=== PATIENT | female | born 1990 | race Caucasian/White ===

== ENCOUNTER → 2018-06-04 08:31 | Outpatient (CLI) | payer OTHER, SELFPAY ==
[2018-06-04 08:52] LABS: Basophils # 0.1 K/mm3 (0-0.2); Basophils % 0.6 % (0.1-2.0); Eosinophils # 0.3 K/mm3 (0.0-0.4); Eosinophils % 3.6 % (0.1-12.0); Hematocrit 41.5 % (37.0-47.0); Hemoglobin 13.3 g/dL (12.2-16.2); Lymphocytes # 2.9 K/mm3 (0.7-4.5); Lymphocytes % 31.8 K/mm3 (10-50); Mean Corpuscular HGB Conc 32.2 g/dL (31.8-35.4); Mean Corpuscular Hemoglobin 28.1 pg (27.0-31.2); Mean Corpuscular Volume 87.2 fl (81-99); Mean Platelet Volume 7.2 fl (7.4-10.4); Monocytes # 0.4 K/mm3 (0.1-1.0); Monocytes % 4.1 % (1.7-9.3); Neutrophils # 5.5 K/mm3 (1.8-7.8); Platelet Count 372 K/mm3 (142-424); Red Blood Count 4.75 M/mm3 (4.20-5.40); Red Cell Distribution Width 13.5 % (11.5-17.5); White Blood Count 9.1 K/mm3 (4.8-10.8)
[2018-06-04 11:12] LABS: Alanine Aminotransferase 19 U/L (12-78); Albumin Level 3.7 gm/dL (3.4-5.0); Alkaline Phosphatase 88 U/L (46-116); Anion Gap 9.3 mEq/L (5-15); Aspartate Amino Transferase 9 U/L (15-37); Bilirubin,Total 0.2 mg/dL (0.2-1.0); Blood Urea Nitrogen 10 mg/dL (7-18); Calcium 8.8 mg/dL (8.5-10.1); Carbon Dioxide 27 mmol/L (21.0-32.0); Chloride 107 mmol/L (98-107); Chol/HDL Ratio 4.3 (1-3.5); Cholesterol 163 mg/dL (140-200); Creatinine,Serum 0.76 mg/dL (0.55-1.02); Estimated Glomerular Filt Rate 90 ml/min (>60); GFR (African American) 109 ML/MIN (>60); Globulin 3.6 gm/dl (1.3-3.2); Glucose 94 mg/dL (74-106); HDL Cholesterol 38 mg/dL (29-89); LDL Cholesterol 98 mg/dL (0-130); Potassium 4.3 mmoL/L (3.5-5.1); Sodium 139 mmol/L (136-145); Total Protein,Serum 7.3 gm/dL (6.4-8.2); Triglycerides 137 mg/dL (30-200); VLDL Cholesterol 27 mg/dL (0-40)
[2018-06-05 18:17] LABS: Vitamin D 25 Hydroxy 30.7 ng/mL (30.0-100.0)
[2018-06-05 18:18] LABS: Vitamin B12 383 pg/mL (232-1245)
== END ==
PROVIDERS: Visit Provider Nurse Practitioner Family
DX: Z00.00 Encounter for general adult medical examination without abnormal findings (principal); R53.83 Other fatigue
CPT/HCPCS: 36415; 80053; 80061; 82607; 82652; 84443; 85025

== ENCOUNTER → 2019-05-03 09:36 | Outpatient (CLI) | payer OTHER, SELFPAY ==
--- NOTE | 2019-05-03 09:40 | XR_ITS ---
XR foot RT min 3V HISTORY: ITS.REASON: RT FOOT PAIN ORDERING PHYSICIAN: Clif Melgar MD PATIENT AGE: 28 years COMPARISON: FINDINGS: No fracture or dislocation. No lytic or blastic change. There is normal mineralization.. The joint spaces are well-preserved. No significant degenerative/arthritic changes. No erosive changes evident. Incidental note is made of a prominent os navicularis an os trigonum IMPRESSION: No acute finding , prominent os navicularis an os trigonum
--- NOTE | 2019-05-03 16:21 | XR_ITS ---
XR foot RT min 3V HISTORY: ITS.REASON: RT FOOT PAIN,TRAUMA,WB TO EVAL. FOR STRESS FX ORDERING PHYSICIAN: Clif Melgar MD PATIENT AGE: 28 years COMPARISON: None FINDINGS: There is a faint lucency along the medial and proximal aspect of the navicular. This could be related to an os navicularis versus a fracture. Consider CT for more thorough evaluation. No other significant anomalies are evident. IMPRESSION: Possible naviculare versus nondisplaced fracture at the base of the navicular medially. Consider CT for further evaluation
== END ==
PROVIDERS: PCP Internal Medicine Adolescent Medicine; Visit Provider Internal Medicine Adolescent Medicine
DX: M79.671 Pain in right foot (principal); G89.11 Acute pain due to trauma
CPT/HCPCS: 73630

== ENCOUNTER 2019-05-03 16:45 | Outpatient (RCR) | payer OTHER, SELFPAY | END 2019-05-03 17:00 | disposition home or self-care (01) | LOC: PT 16:45 | PROVIDERS: Visit Provider Nurse Practitioner Family | DX: M79.671 Pain in right foot (principal); G89.11 Acute pain due to trauma | CPT/HCPCS: 97760 ==

== ENCOUNTER → 2019-05-05 08:01 | Outpatient (CLI) | payer OTHER, SELFPAY ==
--- NOTE | 2019-05-05 08:07 | CT_ITS ---
CT foot RT wo con INDICATION: Trauma with right foot pain, abnormal radiograph ITS.REASON: RT FOOT PAIN ORDERING PHYSICIAN: Tess Winters APRN PATIENT AGE: 28 years COMPARISON: 05/03/2019 TECHNIQUE: Contrast Used:None Oral Contrast: Axial images were obtained. Sagittal and coronal reformatted images are reviewed as well. All CT scans at the facility use one or more dose reduction, viz: automated exposure control, ma/kV adjustment per patient size (including targeted exams where dose is matched to indication, i.e. head), or iterative reconstruction technique. FINDINGS: No acute fracture or dislocation is evident. Previously noted radiographic MLO the of the navicular bone appears to represent a type II accessory navicular bone and not an acute fracture. No acute fracture or dislocation is evident. There is an os trigonum also as a normal variant. No evidence of stress fracture. IMPRESSION: 1. No acute fracture 2. Type 2 accessory navicular bone
== END ==
PROVIDERS: PCP Internal Medicine Adolescent Medicine; Visit Provider Nurse Practitioner Family
DX: M79.671 Pain in right foot (principal)
CPT/HCPCS: 73700

== ENCOUNTER → 2019-10-20 08:29 | Outpatient (CLI) | payer OTHER, SELFPAY ==
--- NOTE | 2019-10-20 08:31 | US_ITS ---
PROCEDURE: US GALLBLADDER CLINICAL INDICATION: RUQ PAIN Upper quadrant pain nausea COMPARISON: No exams were available for comparison FINDINGS: Pancreas: Unremarkable/Not well seen Liver: Unremarkable. There is appropriate direction of blood flow within a non dilated portal vein. Right kidney: Unremarkable appearing. No hydronephrosis. Gallbladder: No stones are evident. There is no gallbladder wall thickening. Common duct is normal in diameter. IMPRESSION: Negative gallbladder ultrasound. No stones evident. Dictated by: Faisal Calle MD 10/20/2019 18:58 Electronically signed by Faisal Calle MD in [place] 10/20/2019 18:58
== END ==
PROVIDERS: PCP Internal Medicine Adolescent Medicine; Visit Provider Internal Medicine Adolescent Medicine
DX: R10.11 Right upper quadrant pain (principal)
CPT/HCPCS: 76705

== ENCOUNTER → 2019-10-29 09:40 | Outpatient (CLI) | payer OTHER, SELFPAY ==
--- NOTE | 2019-10-29 09:47 | NM_ITS ---
PROCEDURE: NM HEPATOBILIARY W PHARM CLINICAL INDICATION: RUQ PAIN COMPARISON: No exams were available for comparison FINDINGS: Exam is performed with 8 millicuries of technetium Choletec. Initial image shows homogeneous liver activity and gallbladder fossa activity by 15 minutes and activity in the proximal jejunum by 30 minutes. Ejection fraction is 96 percent. IMPRESSION: No evidence of cystic duct obstruction. Normal ejection fraction. Dictated by: Kee Beckwith 10/29/2019 12:58 Electronically signed by Kee Beckwith in [place] 10/29/2019 12:58
--- NOTE | 2019-10-29 10:54 | HMH.ITSHM ---
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 [] no med
== END ==
PROVIDERS: PCP Internal Medicine Adolescent Medicine; Visit Provider Nurse Practitioner Family
DX: R10.11 Right upper quadrant pain (principal)
CPT/HCPCS: 78227; A9537; J2805

== ENCOUNTER → 2020-10-06 10:01 | Outpatient (CLI) | payer OTHER, SELFPAY ==
[2020-10-06 11:41] LABS: Adenovirus,PCR Not Detected (NotDetected); Bordetella Pertussis Not Detected (NotDetected); Chlamydophila Pneumoniae, PCR Not Detected (NotDetected); Coronavirus 19, PCR Not Detected (NotDetected); Coronavirus 229E Not Detected (NotDetected); Coronavirus NL63 Not Detected (NotDetected); Coronavirus OC43 Not Detected (NotDetected); Coronovirus HKU1,PCR Not Detected (NotDetected); Human Metapneumovirus Not Detected (NotDetected); Influenza A, PCR Not Detected (NotDetected); Influenza AH1, 2009 Not Detected (NotDetected); Influenza AH1, PCR Not Detected (NotDetected); Influenza AH3,PCR Not Detected (NotDetected); Influenza B, PCR Not Detected (NotDetected); Mycoplasma Pneumoniae, PCR Not Detected (NotDetected); Parainfluenza 1, PCR Not Detected (NotDetected); Parainfluenza 2, PCR Not Detected (NotDetected); Parainfluenza 3, PCR Not Detected (NotDetected); Parainfluenza 4, PCR Not Detected (NotDetected); Respiratory Syncytial Virus Not Detected (NotDetected); Rhinovirus/Enterovirus Not Detected (NotDetected)
== END ==
PROVIDERS: PCP Internal Medicine Adolescent Medicine; Visit Provider Internal Medicine Adolescent Medicine
DX: Z03.818 Encounter for observation for suspected exposure to other biological agents ruled out (principal); R05 Cough
CPT/HCPCS: 87581; 87633; 87798; U0003

== ENCOUNTER 2020-10-21 12:49 | Emergency (ER) | payer OTHER, SELFPAY ==
[2020-10-21 12:55] VITALS: BP 128/69; PULSE 82; RESP 20; TEMP 36.8; O2SAT 96; BMI 44.9
--- NOTE | 2020-10-21 13:20 | HMH.EDUTC ---
[facility] [place] Clinical Impression: Otitis media Qualifiers: Otitis media type: suppurative Chronicity: acute Laterality: bilateral Recurrence: non-recurrent Spontaneous tympanic membrane rupture: without spontaneous rupture Qualified Code(s): H66.003 - Acute suppurative otitis media without spontaneous rupture of ear drum, bilateral Disposition: Home, Self-Care Condition on Discharge: Good Instructions: Middle Ear Infection Additional Instructions: Drink plenty of fluids. Take tylenol for pain or fever. Return if you begin to have difficulty breathing. Follow up with your regular doctor. GO TO THE ER FOR ANY WORSENING SYMPTOMS Prescriptions: Amoxicillin [Amoxicillin 500mg Tab] 500 mg PO TID 10 Days #30 tab Transmission Status: Received by [id number] predniSONE [Deltasone 10mg tablet] 10 mg PO BID 3 Days #6 tab Transmission Status: Received by [id number] Referrals: Clif Melgar MD [Primary Care Provider] - Time of Disposition: 13:22 Medical Decision Making - Medical Records Medical records reviewed: No: I reviewed the patient's medical records. - Kike Inquiry Pt receiving controlled substance: No Vital Signs: 10/21/20 12:55 10/21/20 13:25 Temperature 98.2 F 98.2 F Temperature Source Oral Pulse Rate 82 Pulse Rate [Left Brachial] 82 Respiratory Rate 20 20 Blood Pressure 128/69 Blood Pressure [Left Arm] 128/69 Blood Pressure Mean [Left Arm] 88 Blood Pressure Source [Left Arm] Automatic Cuff Blood Pressure Position [Left Arm] Sitting 02 Sat by Pulse Oximetry 96 Oxygen Delivery Method Room Air [facility] [place] - General Stated complaint: rt ear pain Time Seen by Provider: 10/21/20 13:20 Mode of Arrival: Ambulatory Source of Information: Patient Limitations: No Limitations Description of Symptoms (Recalled from Triage Doc. by RN): PATIENT C/O RIGHT EAR PAIN AND FULLNESS IN LEFT EAR SINCE THIS MORNING HEENT Symptoms (Recalled from RN notes): Yes Resp Symptoms (Recalled from RN notes): No Skin Symptoms (Recalled from RN notes): No MS Symptoms (Recalled from RN notes): No Functional Status (Recalled from RN notes): WNL - History of Present Illness Provider Complaint: She c/o bilateral ear pain for the past 2 days. She denies any fever, chills, and exposure to covid. - Related Data Previous Rx's Medication Instructions Recorded Amoxicillin [Amoxicillin 500mg Tab] 500 mg PO TID 10 Days #30 tab 10/21/20 predniSONE [Deltasone 10mg tablet] 10 mg PO BID 3 Days #6 tab 10/21/20 Allergies Allergy/AdvReac Type Severity Reaction Status Date / Time No Known Allergies Allergy Unverified 10/21/17 15:04 - Worker's Comp Is this a Worker's Comp case?: No [facility] History - Hepatitis A Screen Drug use history?: No High risk sexual behaviors?: No History of sexually transmitted infection?: No Currently employed?: No Childcare worker?: No Do you have indoor plumbing?: Yes Do you have electricity?: Yes Attestation statement:: This patient has been screened for Hepatitis A risk factors. I have reviewed the patient's past medical history: Yes Medical History: Denies:: Diabetes Mellitus Type 1, Diabetes Mellitus Type 2 Laterality Cases: Bilateral: Tonsillectomy - Social History Alcohol Intake: never Occupational Status: other Housing: house Household Members: significant other, children ROS Obtained: Yes All systems reviewed & no additional complaints - Constitutional Constitutional: Denies chills, Denies fever(s), Reports poor appetite, Reports malaise - Eyes Eyes: Denies eye discharge - ENT Ears, Nose, Mouth, and Throat: Reports as per HPI - Cardiovascular Cardiovascular: Denies chest pain - Respiratory Respiratory: No chest congestion, No cough Physical Exam - General General appearance: alert, in no apparent distress - Head Head exam: atraumatic, normocephalic, normal inspection - Eye Eye exam: Present: normal appear
[2020-10-21 13:25] VITALS: BP 128/69; PULSE 82; RESP 20; TEMP 36.8; O2SAT 96
== END 2020-10-21 13:28 | disposition home or self-care (01) ==
PROVIDERS: Emergency Provider Nurse Practitioner Family; PCP Internal Medicine Adolescent Medicine
DX: H66.003 Acute suppurative otitis media without spontaneous rupture of ear drum, bilateral (principal)
CPT/HCPCS: 99201

== ENCOUNTER 2021-04-01 12:23 | Emergency (ER) | payer OTHER, SELFPAY ==
[2021-04-01 12:32] VITALS: BP 138/86; PULSE 98; RESP 16; TEMP 36.7; O2SAT 98; BMI 44.9
--- NOTE | 2021-04-01 12:36 | XR_ITS ---
PROCEDURE INFORMATION: Exam: XR Left Foot Exam date and time: 04/01/2021 12:36 PM Age: 30 years old Clinical indication: Injury or trauma; Fall; Blunt trauma; Patient HX: PT fell on wet grass yesterday. Left foot pain. Shielded. TECHNIQUE: Imaging protocol: XR Left foot. Views: 1 or 2 views. COMPARISON: CR (FOOT AP, FOOT, FOOT AP) 05/03/2019 4:34 PM FINDINGS: Bones/joints: Normal. Soft tissues: Normal. IMPRESSION: No acute findings.
--- NOTE | 2021-04-01 12:36 | XR_ITS ---
PROCEDURE INFORMATION: Exam: XR Left Tibia and Fibula Exam date and time: 04/01/2021 12:36 PM Age: 30 years old Clinical indication: Injury or trauma; Fall; Blunt trauma; Patient HX: Patient fell on wet grass yesterday, left lower leg pain. Shielded. TECHNIQUE: Imaging protocol: XR Left tibia and fibula. Views: 2 views. COMPARISON: No relevant prior studies available. FINDINGS: Bones/joints: No acute fracture. No dislocation. Soft tissues: Normal. IMPRESSION: No acute findings.
--- NOTE | 2021-04-01 12:36 | XR_ITS ---
PROCEDURE INFORMATION: Exam: XR Left Ankle Exam date and time: 04/01/2021 12:36 PM Age: 30 years old Clinical indication: Injury or trauma; Fall; Blunt trauma; Patient HX: Patient fell on wet grass yesterday. Left ankle pain. Shielded. TECHNIQUE: Imaging protocol: XR Left ankle. Views: 1 or 2 views. COMPARISON: CR (FOOT AP, FOOT, FOOT AP) 05/03/2019 4:34 PM FINDINGS: Bones/joints: Normal. Soft tissues: Normal. IMPRESSION: No acute findings.
--- NOTE | 2021-04-01 12:43 | HMH.EDGENADL ---
ED Disposition Clinical Impression: Left ankle sprain Qualifiers: Encounter type: initial encounter Involved ligament of ankle: other ligament Qualified Code(s): S93.492A - Sprain of other ligament of left ankle, initial encounter Disposition: Home, Self-Care Condition on Discharge: Fair Instructions: DI for Ankle Sprain Additional Instructions: You have been evaluated for left ankle injury. Diagnosed with a high-grade sprain. Please follow-up with your primary care doctor in 1 to 2 days for recheck. You may need an MRI in the future and to see orthopedics in clinic. Wear a walking boot. Tolerate weightbearing if you are able to. Return to the emergency department for any new or worsening pain or other concerns Referrals: Clif Melgar MD [Primary Care Provider] - Time of Disposition: 13:51 - Critical Care Critical Care Time: No Attestation: On , the high probability of a clinically significant, sudden or life threatening deterioration of the following system(s) required my full and direct attention, intervention and personal management. The time I documented below is in addition to time spent performing reported procedures but includes the following listed in this critical care notation. Medical Decision Making - Medical Records Medical records reviewed: Yes: I reviewed the patient's medical records. - Kike Inquiry Pt receiving controlled substance: No Vital Signs: 04/01/21 12:32 Temperature 98.0 F Temperature Source Oral Pulse Rate [Left Radial] 98 H Respiratory Rate 16 Blood Pressure [Right Arm] 138/86 Blood Pressure Mean [Right Arm] 103 Blood Pressure Source [Right Arm] Automatic Cuff Blood Pressure Position [Right Arm] Sitting 02 Sat by Pulse Oximetry 98 Oxygen Delivery Method Room Air Medical Decision Narrative: In summary this is a 30-year-old female presenting to the emergency department with left lower leg and ankle pain after a fall. She is clinically stable on arrival. Vital signs within normal limits. Knee exam is stable. Concern for distal tibia fracture, fibula fracture, ankle bone fracture, interosseous injury, sprain, strain. Will obtain x-rays of the left tib-fib, ankle, foot. X-rays of the bajwa, ankle, foot reassuring. No fracture identified. Patient likely has a soft tissue injury, cannot exclude a high-grade ankle sprain. Placed into a walking boot. Able to tolerate ambulating. Counseled to follow-up closely with her PCP. May need advanced imaging like CT or MRI if her pain gets worse or does not improve. She has high health knowledge, is a nurse. Feels comfortable with the plan for discharge. General Adult HPI - General Chief complaint: PAIN Stated complaint: ao 03/31/21 injury to Lt ankle Time Seen by Provider: 04/01/21 12:33 Mode of Arrival: Wheelchair Limitations: No Limitations Description of Symptoms (Recalled from ER Triage Doc. by RN): Pt states that she fell yesterday while outside. c/o pain in her left calf, ankle and foot. States the pain has improved with motrin, ice and elevation since yesterday but she is unable bear weight on that leg or foot. Denies hitting her head or any other injuries at this time. - History of Present Illness HPI narrative: 30-year-old female presenting to the emergency department with left leg and ankle pain. She was walking in her grass yesterday afternoon when she slipped on a wet spot. She fell to the ground. Believes that her left knee was bent but her foot was stuck underneath her. She had immediate pain. Pain was initially on the inner aspect of her left ankle and on the lateral aspect of her lower leg. Now she has pain on the medial and lateral aspect of the ankle that radiates up her bajwa and into her calf. No particular pain of the knee joint. She has a difficulty walking. Feels like her ankle is very swollen and unstable. No pain with any motion. No pain in the hip or femur. No other injuries in the fall. She has be
[2021-04-01 14:26] VITALS: BP 138/86; PULSE 98; RESP 19; TEMP 36.7; O2SAT 99
== END 2021-04-01 14:28 | disposition home or self-care (01) ==
PROVIDERS: Emergency Provider Emergency Medicine; PCP Internal Medicine Adolescent Medicine
DX: S93.492A Sprain of other ligament of left ankle, initial encounter (principal); W01.0XXA Fall on same level from slipping, tripping and stumbling without subsequent striking against object, initial encounter; Y92.017 Garden or yard in single-family (private) house as the place of occurrence of the external cause; Z87.891 Personal history of nicotine dependence
CPT/HCPCS: 73590; 73600; 73620; 99282

== ENCOUNTER → 2021-04-12 07:55 | Outpatient (CLI) | payer OTHER, SELFPAY ==
--- NOTE | 2021-04-12 07:59 | MR_ITS ---
PROCEDURE: MR KNEE LT WO CON CLINICAL INDICATION: LEFT MEDIAL KNE PAIN, LEFT LATERAL ANKLE PAIN COMPARISON: No exams were available for comparison TECHNIQUE: Routine multiplanar multi echo sequences are performed without gadolinium enhancement. FINDINGS: The cruciate ligaments, collateral ligaments, patellar tendon, and quadriceps tendon appear intact. No evidence of meniscal tear. There is bone marrow edema involving the proximal tibia medially and posteriorly consistent with bone bruise with a smaller area of bruising suspected in the fibular head and proximal tibia laterally and posteriorly. There is a small knee joint effusion and mild subcutaneous edema in the anterior knee region. The patellar cartilage is preserved. There is minimal lateral patellar subluxation. The patellofemoral ligaments appear intact. IMPRESSION: 1. No evidence of internal derangement. 2. Bone bruise of the proximal tibia medially and fibular head region and proximal tibia laterally and posteriorly with small knee joint effusion. There are a Dictated by: Faisal Calle MD 04/12/2021 15:09 Faisal Calle MD in [place] 04/12/2021 15:09
--- NOTE | 2021-04-12 07:59 | MR_ITS ---
PROCEDURE INFORMATION: Exam: MR Left Lower Extremity Joint Without Contrast; Ankle Exam date and time: 04/12/2021 7:59 AM Age: 30 years old Clinical indication: Pain; Ankle; Left; Additional info: Left medial kne pain, left lateral ankle pain. Lateral ankle pain. Pain worse around heel. Fell x1.5wks ago. Swelling in ankle. Prior x-ray 04-01-21. TECHNIQUE: Imaging protocol: MR of the Left lower extremity without contrast. Exam focused on the ankle. COMPARISON: 1. CR XR ANKLE LT 2V 04/01/2021 12:44 PM 2. CR XR FOOT LT 2V 04/01/2021 12:46 PM FINDINGS: Bones and cartilage: There is no acute fracture or dislocation. No aggressive bone lesions are present. The median eminence of the navicular bone is enlarged. This is consistent with a type III accessory navicular, which has been associated with impingement symptoms. An os trigonum accessory bone is present along the dorsal aspect of the talus. The ossicle has a normal appearance. There is no evidence of posterior impingement. Cystlike changes in the calcaneus located inferior to the angle of Gissane are typical for remnant penetrating vessels. Joint spaces: A mild effusion involves the ankle joint. LIGAMENTS: Distal tibiofibular syndesmosis: Unremarkable. No tear. Anterior talofibular ligament: The anterior talofibular ligament has only a few remaining intact inferior fibers, consistent with a high-grade partial-thickness tear. Posterior talofibular ligament: The posterior talofibular ligament is thickened and has intermediate signal intensity, consistent with prior low grade injury. Calcaneofibular ligament: The calcaneofibular ligament demonstrates intermediate signal intensity, consistent with prior low grade injury. Deltoid ligament complex: Unremarkable. No tear. TENDONS: Flexor tendons of foot: Mild tenosynovitis involves the flexor digitorum longus tendon. Fluid surrounding the flexor hallucis tendon has likely decompressed from the ankle joint. Tibialis posterior tendon: Mild tenosynovitis involves the tibialis posterior tendon. Peroneal tendons: Unremarkable as visualized. Extensor tendons of foot: Unremarkable as visualized. Tibialis anterior tendon: Unremarkable. Achilles tendon: Mild thickening involves the distal Achilles tendon, consistent with mild tendinopathy. Tarsal canal (Sinus tarsi): The sinus tarsi has normal fat signal. Tarsal tunnel: Unremarkable. Muscles: Unremarkable. Soft tissues: Subcutaneous edema is severe along the lateral aspect of the ankle and moderate along the medial aspect and dorsolateral foot. Plantar fascia: Mild edema superficial to the proximal plantar fascia at the calcaneal attachment is indeterminant for mild plantar fasciitis (fasciopathy). IMPRESSION: 1. High-grade, partial-thickness tear of the anterior talofibular ligament. 2. Low-grade injuries of the posterior talofibular ligament and calcaneofibular ligament. 3. Mild Achilles tendinopathy. 4. Mild tenosynovitis of the tibialis posterior and flexor digitorum longus tendons. 5. No acute fracture or dislocation.
== END ==
PROVIDERS: PCP Internal Medicine Adolescent Medicine; Visit Provider Internal Medicine Adolescent Medicine
DX: M25.562 Pain in left knee (principal); M25.572 Pain in left ankle and joints of left foot
CPT/HCPCS: 73721

== ENCOUNTER → 2021-05-01 10:52 | Outpatient (CLI) | payer OTHER, SELFPAY ==
--- NOTE | 2021-05-01 10:54 | XR_ITS ---
PROCEDURE: XR ANKLE WT BEARING LT MIN 3V CLINICAL INDICATION: fracture follow up, pain COMPARISON: CR XR ANKLE LT 2V from 04/01/2021 CR XR TIBIA FIBULA LT 2V from 04/01/2021 MR MR ANKLE LT WO CON from 04/12/2021 FINDINGS: Bones: Linear calcific density is present along the posterior aspect of the distal tibia and could be sequela from prior fracture or ligamentous injury. No other significant anomalies are evident. The ankle mortise is preserved.. Joints: The joint spaces are well-preserved. No significant degenerative/arthritic changes. No erosive changes evident. Other findings:None. IMPRESSION: Linear calcification along the posterior distal tibia which could be due to a prior fracture or dystrophic calcification from soft tissue injury Dictated by: Faisal Calle MD 05/01/2021 12:10 Faisal Calle MD in [place] 05/01/2021 12:10
== END ==
PROVIDERS: PCP Internal Medicine Adolescent Medicine; Visit Provider Podiatrist
DX: M25.572 Pain in left ankle and joints of left foot (principal); S92.132A Displaced fracture of posterior process of left talus, initial encounter for closed fracture
CPT/HCPCS: 73610

== ENCOUNTER → 2021-05-14 08:45 | Outpatient (CLI) | payer OTHER, SELFPAY ==
--- NOTE | 2021-05-14 08:45 | MR_ITS ---
PROCEDURE INFORMATION: Exam: MR Left Lower Extremity Joint Without and With Contrast; Ankle Exam date and time: 05/14/2021 8:45 AM Age: 30 years old Clinical indication: Pain; Ankle; Left; Additional info: Fracture evaluation. PT fell and twisted ankle x1.5 months ago. Entire ankle pain. Pain when weight bearing. 26ml prohance given. 17ml lot: [id number] exp: Dec 2022 9ml lot: [id number] exp: Jan 2023 prior MR 04-12-21 TECHNIQUE: Imaging protocol: MR of the Left lower extremity without and with contrast. Exam focused on the ankle. Contrast material: PROHANCE; Contrast volume: 26 ml; Contrast route: IV; COMPARISON: 1. MR ANKLE LT WO CON 04/12/2021 8:14 AM 2. CR XR ANKLE WT BEARING LT MIN 3V 05/01/2021 11:06 AM 3. CR XR ANKLE LT 2V 04/01/2021 12:44 PM FINDINGS: Bones and cartilage: The previously seen calcifications along the dorsal aspect of the posterior malleolus of the tibia is relatively subtle on MRI although best seen on series 14/image 38. The appearance is most consistent with posttraumatic periosteal reaction. Minimal bone marrow edema involves the underlying posterior malleolus without fracture. There is no acute fracture or dislocation. No aggressive bone lesions are present. The median eminence of the navicular bone is enlarged. This is consistent with a type III accessory navicular, which has been associated with impingement symptoms. A benign bone island is incidentally noted. Cystlike changes in the calcaneus located inferior to the angle of Gissane are typical for remnant penetrating vessels. An osteophyte is present along the dorsal aspect of the talar head/neck. There is no evidence of tarsal coalition. An os trigonum accessory bone is present along the dorsal aspect of the talus. The ossicle has a normal appearance. There is no evidence of posterior impingement. Joint spaces: A mild effusion involves the ankle joint. LIGAMENTS: Distal tibiofibular syndesmosis: The anterior and posterior tibiofibular ligaments have abnormal signal intensity consistent with partial-thickness tearing that is likely intermediate-grade involving the anterior tibiofibular ligament and likely low-grade involving the posterior tibiofibular ligament. The syndesmotic ligament has intermediate signal but is grossly intact. Anterior talofibular ligament: The anterior talofibular ligament is thin, consistent with an intermediate grade partial-thickness tear. The anterior talofibular ligament has an improved appearance compared with 04/12/2021. Posterior talofibular ligament: The posterior talofibular ligament is thickened and has intermediate signal intensity, consistent with prior low grade injury. Calcaneofibular ligament: The calcaneofibular ligament demonstrates intermediate signal intensity, consistent with prior low grade injury. Deltoid ligament complex: Unremarkable. No tear. Lisfranc ligament: Increased T2 signal is seen in the otherwise intact Lisfranc ligament, consistent with an age-indeterminate sprain. TENDONS: Flexor tendons of foot: Unremarkable as visualized. Tibialis posterior tendon: Mild tenosynovitis involves the tibialis posterior tendon. Peroneal tendons: Trace tenosynovitis involves the peroneal tendon sheath. Extensor tendons of foot: Unremarkable as visualized. Tibialis anterior tendon: Unremarkable. Achilles tendon: Mild thickening involves the distal Achilles tendon, consistent with mild tendinopathy. Tarsal canal (Sinus tarsi): Unremarkable. Normal signal of the fat. Tarsal tunnel: Unremarkable. Muscles: Unremarkable. Soft tissues: Moderate subcutaneous edema involves the lateral ankle and dorsolateral foot. Plantar fascia
== END ==
PROVIDERS: PCP Internal Medicine Adolescent Medicine; Visit Provider Podiatrist
DX: M25.572 Pain in left ankle and joints of left foot (principal); M65.9 Synovitis and tenosynovitis, unspecified; S93.402A Sprain of unspecified ligament of left ankle, initial encounter; S93.492A Sprain of other ligament of left ankle, initial encounter
CPT/HCPCS: 73723; A9576

== ENCOUNTER 2021-07-18 13:00 | Outpatient (RCR) | payer OTHER, SELFPAY ==
--- NOTE | 2021-06-04 11:57 | HMH.PTOPEV ---
PT Outpatient Evaluation Rehab PT Outpatient Evaluation Start: 06/04/21 10:54 Freq: Status: Active Protocol: Document 06/04/21 11:15 VICKI (Rec: 06/04/21 11:57 VICKI [id number]) Electronically Signed By Feliciano Fernandes, PT 06/04/21 11:15 Outpatient Therapy Subjective History Subjective History Pt reports severe left ankle sprain sustained on March 31, 2021. Pt reports slip, fall, with twist of LLE under body. MRI of Left ankle revealed multi-soft tissue structure insult, including ATF, post. tib/fib lig, achilles, Lisfranc lig. Pt reports recent attempt to progress PWB on LLE, 'has gone better than it did a couple months ago.' Pt reports lingering left ankle global stiffness, swelling, weakness, and pain w/Wb'ing. Chief Complaint Pain,Stiff,Clicks,Swelling, Weakness Symptom Type Ache,Sharp,Dull Symptoms Relieved By Rest/Positioning,Ice Symptoms Aggravated By Standing,Walking Prior Functional Limitations Standing,Walking,Stairs Current Functional Limitations Standing,Walking,Stairs Symptom Description Constant but Variable Level of pain today (0-10) 2 Pain scale - at its best (0-10) 1 Pain scale - at its worst (0-10) 5 Ankle/Foot Eval Gait Observation General Gait Pattern Observation Antalgic Gait,Decrease Weight Bear (L) Assistive Device Ambulation Assistive Device Axillary Crutches Palpation Tenderness left Ankle/Foot Palpation Findings Tenderness Ankle/Foot Palpation Overall Comment 3/4 ATF TTP positive PTF TTP positive CF TTP positive Deltoid ligament TTP positive ROM Ankle/Foot Dorsiflexion w/Knee Extended +8 Active Range Motion (degrees) Ankle/Foot Dorsiflexion w/Knee Extended +5 Passive Range (degrees) Ankle/Foot Plantar Flexion Passive Range 8-20 of Motion (degrees) Ankle/Foot Eversion Passive Range of 0-10 Motion (degrees) Ankle/Foot Inversion Passive Range of 0-25 Motion (degrees) Ankle/Foot ROM Limitations Soft Tissue Tightness,Pain MMT Ankle Dorsiflexion Strength Grade 4- Good- Ankle Plantarflexion Strength Grade 4 Good Foot Eversion Strength Grade 3+ Fair+ Foot Inversion Strength Grade 3+ Fair+ Outpatient Therapy Assessment
--- NOTE | 2021-07-02 14:30 | HMH.RHREAS ---
Rehab Reassessment Rehab OP Re-assessment Start: 07/02/21 14:01 Freq: Status: Active Protocol: Document 07/02/21 14:01 VICKI (Rec: 07/02/21 14:30 VICKI [email or web address]) Electronically Signed By Feliciano Fernandes, PT 07/02/21 14:01 Rehab Re-assessment Subjective Subjective PT REPORTS 2/10 LEFT ANKLE/ FOOT PAIN THIS PM ON VAS, AND FEELS 60% BETTER OVERALL SINCE I EVAL Objective Objective Notes PROM: RIGHT ANKLE DF 0-10, PF 0-45, INV 0-40, EVR 0-20 AROM: RIGHT ANKLE DF 0-5, PF 0 -35, INV 0-35, EVR 0-15 MMT: RIGHT ANKLE DF 4--4/5, PF 4-/5, INV 4/5, EVR 4--4/5 TTP: RIGHT ANKLE MEDIAL JT LINE 2/4, LATERAL JT LINE 2/5, ANT JT LINE 1-2/4 FIG 8: RIGHT ANKLE 60CM Assessment Progress Assessment Progressing as Expected Assessment Notes IMPROVED ROM, STRENGTH, AND TTP Patient goals met STG'S 05/11 LTG'S 11/13 Goals Not Met STG'S 12/12, LTG'S 08/13 Plan Plan PT TO CONT. W/SKILLED P.T. TO MAKE FURTHER IMPROVEMENTS IN RIGHT ANKLE ROM, STRENGTH, TTP , ADN SWELLING TO ALLOW FOR OPTIMAL FUNCTION AND GAIT FOR WORK RELATED ACTIVITIES Frequency of Therapy 2-3X/WK Duration of therapy 4-6WKS Time and Billing Re-Eval Time 15 Re-Eval Billing Units 1 PHYSICIAN CERTIFICATION: I certify the specified therapy services for Desi Hodges are required, authorized, and reviewed every 30 days.
== END 2021-07-18 13:05 | disposition home or self-care (01) ==
LOC: PT 13:00
PROVIDERS: PCP Internal Medicine Adolescent Medicine; Visit Provider Podiatrist
DX: S93.402A Sprain of unspecified ligament of left ankle, initial encounter (principal)
CPT/HCPCS: 97014; 97016; 97033; 97035; 97110; 97140; 97163; 97164; G0283

== ENCOUNTER 2021-10-31 21:25 | Emergency (ER) | payer SELFPAY ==
--- NOTE | 2021-10-31 21:37 | XR_ITS ---
PROCEDURE INFORMATION: Exam: XR Right Shoulder Exam date and time: 10/31/2021 9:37 PM Age: 31 years old Clinical indication: Pain; Shoulder; Right; Patient HX: Fall; Additional info: Shoulder pain TECHNIQUE: Imaging protocol: XR Right shoulder. Views: 2 or more views. COMPARISON: No relevant prior studies available. FINDINGS: Bones/joints: Normal. Soft tissues: Normal. IMPRESSION: No acute findings.
[2021-10-31 21:38] VITALS: BP 177/91; PULSE 111; RESP 18; TEMP 36.8; O2SAT 97; BMI 45.7
--- NOTE | 2021-10-31 21:38 | HMH.EDGENADL ---
ED Disposition Clinical Impression: Shoulder pain, acute Qualifiers: Laterality: right Qualified Code(s): M25.511 - Pain in right shoulder Disposition: Home, Self-Care Condition on Discharge: Good Additional Instructions: Sling as needed for pain, make sure that you move your arm if you have continued pain after a few days return to the emergency department, call your PCP and ask referral to orthopedics. Take acetaminophen and/or ibuprofen for pain. This does not have left you may also take Flexeril, do not drive when you take the Flexeril. Prescriptions: Cyclobenzaprine HCl [Flexeril 10mg tablet] 10 mg PO Q8HP PRN #12 tab PRN Reason: Severe Pain Transmission Status: Pending to [email or web address] Referrals: Ishan Plaza MD [Primary Care Provider] - - Critical Care Critical Care Time: No Attestation: On 10/31/21, the high probability of a clinically significant, sudden or life threatening deterioration of the following system(s) required my full and direct attention, intervention and personal management. The time I documented below is in addition to time spent performing reported procedures but includes the following listed in this critical care notation. Medical Decision Making - Medical Records Medical records reviewed: Yes: I reviewed the patient's medical records. - Kike Inquiry Pt receiving controlled substance: No Kike was queried for this patient: No Vital Signs: 10/31/21 21:38 Temperature 98.3 F Temperature Source Oral Pulse Rate [Left] 111 H Respiratory Rate 18 Blood Pressure [Left Arm] 177/91 H Blood Pressure Mean [Left Arm] 119 02 Sat by Pulse Oximetry 97 Oxygen Delivery Method Room Air Orders (Tests/Meds): ORDERS Category Date Time Status XR shoulder RT min 2V Stat Exams 10/31/21 21:37 Taken Medical Decision Narrative: Patient is a 31-year-old female presented emergency department with chief complaint of right shoulder pain after a fall. Differential diagnosis includes shoulder dislocation, fracture, musculoskeletal strain among others. Patient was offered Tylenol however stated that she could not currently deal with the pain, will order x-rays to further assess. No obvious deformity on the x-ray, given this this discussed with patient she was given a sling for comfort, prescribed Robaxin. General Adult HPI - General Stated complaint: O/A 10/31 @ 1830 fall, Right arm injury Time Seen by Provider: 10/31/21 21:35 - History of Present Illness HPI narrative: Patient is a 31-year-old female with no significant past medical history beyond lumbar fusion to the emergency department chief complaint of shoulder pain after fall. Patient states that she tripped over a shoe, fell down about 6 stairs and hit her right shoulder back. She is complaining mostly of pain in her right shoulder, as well as increased pain with movement of her fingers. She is denying numbness, tingling lack of sensation in her fingers. Did not have loss of consciousness, some mild right lower back pain, and has no other areas of numbness or tingling. She does not take any blood thinners. States arm is most comfortable held upright and she has increased pain with moving it. Patient took 400 of ibuprofen prior to coming to the emergency department. - Related Data Previous Rx's Medication Instructions Recorded cyclobenzaprine 5 mg tablet 5 mg PO BID PRN #30 tab 07/17/21 Cyclobenzaprine HCl [Flexeril 10mg 10 mg PO Q8HP PRN #12 tab 10/31/21 tablet] Allergies Allergy/AdvReac Type Severity Reaction Status Date / Time No Known Allergies Allergy Verified 07/17/21 11:14 [facility] History - Hepatitis A Screen Attestation statement:: This patient has been screened for Hepatitis A risk factors. I have reviewed the patient's past medical history: Yes Medical History: Denies:: Diabetes Mellitus Type 1, Diabetes Mellitus Type 2 Laterality Cases: Bilateral: Tonsillectomy Other Surge
[2021-10-31 22:07] VITALS: BP 177/91; PULSE 98; RESP 16; TEMP 36.8; O2SAT 97
== END 2021-10-31 22:09 | disposition home or self-care (01) ==
PROVIDERS: Emergency Provider Emergency Medicine; PCP Emergency Medicine
DX: M25.511 Pain in right shoulder (principal); W10.9XXA Fall (on) (from) unspecified stairs and steps, initial encounter; Y92.9 Unspecified place or not applicable; Z87.891 Personal history of nicotine dependence
CPT/HCPCS: 73030; 99282

== ENCOUNTER 2024-12-27 08:52 | Outpatient (CLI) | payer OTHER, SELFPAY ==
[2024-12-27 09:00] LABS: Microscopic, Urine URINE MICROSCOPIC (MICROSCOPIC)
[2024-12-27 09:29] LABS: Basophils # 0.1 K/mm3 (0-0.2); Eosinophils # 0.3 K/mm3 (0.0-0.4); Eosinophils % 3.1 % (0.1-12.0); Hematocrit 40.3 % (37.0-47.0); Lymphocytes # 3.2 K/mm3 (0.7-4.5); Mean Corpuscular HGB Conc 32.3 g/dL (31.8-35.4); Mean Corpuscular Hemoglobin 28.3 pg (27.0-31.2); Mean Corpuscular Volume 87.8 fl (81-99); Monocytes # 0.5 K/mm3 (0.1-1.0); Red Blood Count 4.59 M/mm3 (4.20-5.40); Red Cell Distribution Width 13.3 % (11.5-17.5)
[2024-12-27 09:33] LABS: Appearance,Urine CLEAR (Clear); Bilirubin,Urine Negative (Negative); Blood, Urine Negative (Negative); Color,Urine YELLOW (Yellow); Glucose,Urine (UA) Negative (Negative); Ketones,Urine Negative (Negative); Leukocyte Esterase,Urine Negative (Negative); Nitrate,Urine Negative (Negative); Protein,Urine Negative (Negative); Specific Gravity, Urine 1.025 (1.005-1.030); Urobilinogen,Urine 0.2 EU/dl (0.2)
[2024-12-27 09:50] LABS: Basophils % 0.9 % (0.1-2.0); Lymphocytes % 31.5 % (10-50); Mean Platelet Volume 9.8 fl (7.4-10.4); Monocytes % 5.2 % (1.7-9.3); Neutrophils % 58.9 % (37.0-80.0); Platelet Count 404 K/mm3 (142-424); White Blood Count 10.1 K/mm3 (4.8-10.8)
[2024-12-27 09:59] LABS: Bacteria,Urine Trace /lpf; Squamous Epithelial Cell,Urine Occasional #/hpf (0-5); WBC,Urine Occasional #/hpf (0-3)
[2024-12-27 10:07] LABS: Albumin Level 3.9 g/dl (3.5-5.0); Chloride 106 mmol/L (98-107); Sodium 137 mmol/L (136-145)
[2024-12-27 10:08] LABS: Potassium 4.5 mmoL/L (3.5-5.1)
[2024-12-27 10:10] LABS: Alanine Aminotransferase 22 U/L (12-78); Albumin/Globulin Ratio 1.3 (1.1-1.8); Alkaline Phosphatase 95 U/L (38-126); Anion Gap 11.5 mEq/L (5-15); Aspartate Amino Transferase 23 U/L (14-36); Bilirubin,Total 0.3 mg/dl (0.2-1.3); Blood Urea Nitrogen 11 mg/dl (7-17); Carbon Dioxide 24 mmol/L (22.0-30.0); Estimated Glomerular Filt Rate 95 ml/min (>60); GFR (African American) 115 ML/MIN (>60); Globulin 3.1 g/dL (1.3-3.2); Iron 70 ug/dL (37-170)
[2024-12-27 10:11] LABS: Chol/HDL Ratio 4.4 (1-3.5); Cholesterol 164 mg/dl (140-200); Glucose 97 mg/dl (74-100); HDL Cholesterol 37 mg/dl (40-60); Triglycerides 136 mg/dl (30-150); VLDL Cholesterol 27 mg/dL (0-40)
[2024-12-27 10:20] LABS: Total Iron Binding Capacity 369 ug/dL (265-497)
[2024-12-27 10:22] LABS: Direct LDL Cholesterol 90.73 mg/dL (100-129)
[2024-12-27 10:28] LABS: Free T4 (Free Thyroxine) 1.18 ng/dl (0.78-2.19)
[2024-12-27 10:44] LABS: Thyroid Stimulating Hormone 1.04 uIU/mL (0.465-4.68)
[2024-12-27 10:46] LABS: Ferritin 36.3 ng/ml (6.24-137)
[2024-12-27 10:58] LABS: Hepatitis C Ab Qual. W/ RFX NEGATIVE (Negative)
[2024-12-27 11:11] LABS: HIV Combo NEGATIVE (Negative)
[2024-12-27 11:14] LABS: Hemoglobin A1C 5.3 % (4.0-6.0)
[2024-12-27 11:30] LABS: 25-OH Vitamin D, Total 25.6 ng/mL (30-100)
[2024-12-27 12:22] LABS: Vitamin B12 540 pg/mL (239-931)
[2024-12-28 04:13] LABS: Thyroid Peroxidase Antibodies <9 IU/mL (0-34)
[2024-12-28 12:21] LABS: Anti-Centromere B Antibodies <0.2 AI (0.0-0.9); Anti-DNA (DS) Ab Qn <1 IU/mL (0-9); Anti-Jo-1 <0.2 AI (0.0-0.9); Anti-Smith Antibody <0.2 AI (0.0-0.9); Antichromatin Antibodies <0.2 AI (0.0-0.9); Antiscleroderma-70 Antibodies <0.2 AI (0.0-0.9); RNP Antibodies 0.3 AI (0.0-0.9); Sjogren's Anti-SS-A <0.2 AI (0.0-0.9); Sjogren's Anti-SS-B <0.2 AI (0.0-0.9)
== END 2024-12-27 23:59 | disposition home or self-care (01) ==
LOC: LAB 08:53
PROVIDERS: PCP Nurse Practitioner Family; Visit Provider Nurse Practitioner Family
DX: Z13.1 Encounter for screening for diabetes mellitus (principal); Z11.4 Encounter for screening for human immunodeficiency virus [HIV]; Z11.59 Encounter for screening for other viral diseases; R53.83 Other fatigue; R21 Rash and other nonspecific skin eruption; R41.840 Attention and concentration deficit; Z68.43 Body mass index [BMI] 50.0-59.9, adult
CPT/HCPCS: 36415; 80053; 80061; 81001; 82306; 82533; 82607; 82728; 83036; 83540; 83550; 84439; 84443; 85025; 86225; 86235; 86376; 86803; 87086; 87389